=== PATIENT | male | born 1985 | race Caucasian/White ===

== ENCOUNTER 2018-11-03 16:17 | Emergency (ER) | payer OTHER ==
--- NOTE | 2018-11-03 16:31 | EDPHY ---
H & P Stated Complaint: n/v/d; vomitted black coffee grounds Time Seen by Provider: 11/03/18 16:31 - Personal History Current Tetanus/Diphtheria Vaccine: Yes Current Tetanus Diphtheria and Acellular Pertussis (TDAP): Yes - Medical/Surgical History Hx Asthma: No Hx Chronic Respiratory Disease: No Hx Diabetes: No Hx Cardiac Disease: No Hx Renal Disease: No Hx Cirrhosis: No Hx Alcoholism: No Hx HIV/AIDS: No Hx Splenectomy or Spleen Trauma: No - Social History Smoking Status: Former smoker Constitutional: Initial Vital Signs Temperature (C) 36.6 C 11/03/18 16:18 Heart Rate 89 11/03/18 16:18 Respiratory Rate 18 11/03/18 16:18 Blood Pressure 127/103 H 11/03/18 16:18 O2 Sat (%) 96 11/03/18 16:18 O2 Delivery Mode Room Air Allergies/Adverse Reactions: No Known Allergies Allergy (Unverified 01/24/11 00:23) Home Medications: Medication Instructions Recorded Pantoprazole Sodium [Protonix] 20 mg PO DAILY #30 tablet. 11/03/18 Medical Decision Making ED Course/Re-evaluation: CHIEF COMPLAINT: Black vomit and stool HISTORY OF PRESENT ILLNESS: The patient is a 32 y/o male complaining of nausea, vomiting, and diarrhea onset last night. 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 He denies hitting his head or loss of consciousness. This morning he woke up and had black coffee ground vomit. When he had a bowel movement today he noticed that the stool was darker and thicker than normal. When he eats or drinks beer he feels bloated. He reports that he drinks several drinks a day and primarily drinks mixed drinks with soda. He denies a history of alcohol withdrawal symptoms or seizures. No fever, headache, chest pain, urinary complaints, numbness, paresthesias. REVIEW OF SYSTEMS: A comprehensive 10 system review of systems is otherwise negative aside from elements mentioned in the history of present illness and medical decision making. PHYSICAL EXAM: HR, BP, O2 Sat, RR. Temp noted General Appearance: Slightly tremulous, alert, well hydrated, appropriate, and non-toxic appearing. Head: Atraumatic without scalp tenderness or obvious injury Eyes: Pupils equal, round, reactive to light and accommodation, EOMI, no trauma , no injection. Ears: Clear bilaterally, no perforation, normal landmarks Nose: Atraumatic, no rhinorrhea, clear. Throat: There is no erythema or exudates, no lesions, normal tonsils, mucus membranes moist. Neck: Supple, 2+ carotid upstroke, nontender, no lymphadenopathy. Respiratory: No retractions, no distress, no wheezes, and no accessory muscle use. Lungs are clear to auscultation bilaterally. Cardiovascular: Regular rate and rhythm, no murmurs, rubs, or gallops. Bilateral carotid, radial, dorsalis pedis, and posterior tibial pulses intact. Good capillary refill all extremities. Gastrointestinal: Abdomen is soft, nontender, non-distended, no masses, no rebound, no guarding, no peritoneal signs. Musculoskeletal: Normal active ROM of all extremities, atraumatic. Neurological: Alert, appropriate, and interactive. The patient has normal DTRs and non-focal cranial nerves, motor, sensory, and cerebellar exam. Skin: No rashes, good turgor, no nodules on palpation. Past medical history: Denies Past surgical history: Denies Family history: Denies Social history: Friend at bedside, lives in [place], employed as a rubber down DIAGNOSTICS/PROCEDURES/CRITICAL CARE TIME: Not indicated. DIFFERENTIAL DIAGNOSIS: The differential diagnosis for the patient's nausea and vomiting included but was not limited to gastroenteritis, gastritis, appendicitis, and medication side effect. MEDICAL DECISION MAKING: The patient is a 32 y/o male presenting with nausea, vomiting, and diarrhea onset last night. He is a rubber down and drinks daily. He denies a history of having alcohol withdrawal seizures. On exam he is tremulous and I presume that the patient's symptoms are due to alcohol induced gastritis. POC labs ordered; 40mg IV Protonix, 4mg IV Zofran, 1mg IV Ativan, and 1L IV NS. 1700: I reviewed patient's POC labs which are normal. There are no evidence of chronic or acute bleeding. GI has been paged. 1738: I consulted with Dr. Duenas, land appraiser, who agrees to consult on this patient in his office. This patient will need to drink no alcohol and have no NSAIDs. I have prescribed him Protonix for the gastritis and Ativan for alcohol withdrawal. 1742: Reassessed patient and discussed laboratory studies and GI followup. Return precautions provided; patient is comfortable with this plan. - Data Points Laboratory Results: 11/03/18 17:06 POC Hgb 15.3 gm/dL gm/dL (13.7-17.5) POC Hct 45 % % (40-51) POC Sodium 139 mEq/L mEq/L (135-145) POC Potassium 3.7 mEq/L mEq/L (3.3-5.0) POC Chloride 105 mEq/L mEq/L (97-110) POC Total CO2 17 mEq/L L mEq/L (22-31) POC BUN 11 mg/dL mg/dL (7-23) POC Creatinine 0.8 mg/dL mg/dL (0.7-1.3) POC Glucose 116 mg/dL H mg/dL (70-100) Medications Given: Discontinued Medications Sodium Chloride (Ns) 1,000 mls @ 0 mls/hr IV EDNOW ONE; Wide Open PRN Reason: Protocol Stop: 11/03/18 16:40 Last Admin: 11/03/18 16:56 Dose: 1,000 mls Lorazepam (Ativan Injection) 1 mg IVP EDNOW ONE Stop: 11/03/18 16:41 Last Admin: 11/03/18 16:53 Dose: 1 mg Ondansetron HCl (Zofran) 4 mg IVP EDNOW ONE Stop: 11/03/18 16:40 Last Admin: 11/03/18 16:55 Dose: 4 mg Pantoprazole Sodium (Protonix) 40 mg IVP EDNOW ONE Stop: 11/03/18 16:40 Last Admin: 11/03/18 16:59 Dose: 40 mg Point of Care Test Results: Chemistry 11/03/18 17:06 POC Sodium 139 mEq/L mEq/L (135-145) POC Potassium 3.7 mEq/L mEq/L (3.3-5.0) POC Chloride 105 mEq/L mEq/L (97-110) POC Total CO2 17 mEq/L L mEq/L (22-31) POC BUN 11 mg/dL mg/dL (7-23) POC Creatinine 0.8 mg/dL mg/dL (0.7-1.3) POC Glucose 116 mg/dL H mg/dL (70-100) ISTAT H&H 11/03/18 17:06 POC Hgb 15.3 gm/dL gm/dL (13.7-17.5) POC Hct 45 % % (40-51) Departure - Departure Disposition: Home, Routine, Self-Care Clinical Impression: Gastritis Qualifiers: Gastritis type: alcoholic Chronicity: acute Gastritis bleeding: presence of bleeding unspecified Qualified Code(s): K29.20 - Alcoholic gastritis without bleeding Nausea & vomiting Qualifiers: Vomiting type: hematemesis Qualified Code(s): K92.0 - Hematemesis Condition: Good Instructions: Gastritis (ED), Acute Nausea and Vomiting (ED) Additional Instructions: 1. Please refrain from abusing alcohol. 2. Do not take an NSAID's. 3. Take Protonix and Ativan as prescribed. 4. Follow up with a land appraiser in the next week. Please call GI [facility] to schedule an appointment. 5. Return to the emergency department immediately for fever, vomiting, confusion , headache, abdominal pain or other worsening of condition. Referrals: [facility],. [Clinic] - As per Instructions Andrey Duenas MD [Medical Doctor] - As per Instructions Prescriptions: Pantoprazole Sodium [Protonix] 20 mg PO DAILY #30 tablet. Report Scribed for: Emeka Bradford Report Scribed by: Rossy Morgan Date of Report: 11/03/18 Time of Report: 16:34
[2018-11-03] MEDS ORDERED: NS 1,000 ML IV ONE (16:39)
[2018-11-03] MEDS ORDERED: ONDANSETRON 4 MG/2 ML VIAL IVP ONE (16:39)
[2018-11-03] MEDS ORDERED: PANTOPRAZOLE SODIUM 40 MG VIAL IVP ONE (16:39)
[2018-11-03] MEDS ORDERED: LORazepam 2 MG/ML INJ IVP ONE (16:40)
[2018-11-03] MEDS ORDERED: LORAZEPAM 1 MG PREPACK#4 BTL TAKEHOME ONE (17:41)
[2018-11-03 18:14] VITALS: BP 121/68
== END 2018-11-03 18:24 | disposition home or self-care (01) ==
DX: K29.20 Alcoholic gastritis without bleeding (principal); K92.0 Hematemesis; E86.9 Volume depletion, unspecified
CPT/HCPCS: 82435-PO; 82565-PO; 82947-PO; 84132-PO; 84295-PO; 84520-PO; 85014-ER; 96374; J2060; J2405